=== PATIENT | male | born 1935 | race Caucasian/White ===

== ENCOUNTER → 2016-11-29 | Outpatient (CLI) | payer MEDICARE, BC ==
[~2016-11-29] MED LIST: ACCUPRIL PO; ASPIRIN PO; ATENOLOL PO; CALCIUM 500 + D1 TAB PO; DIOVAN PO; KCL PO; LASIX PO; LIPITOR PO; MULTI-VITAMIN1 TAB PO; PLAVIX PO; SKELAXIN PO; VIT E PO; VITAMIN C
--- NOTE | ~2016-11-29 | CT57 ---
[facility] A Service of [facility] RADIOLOGY TEXT RESULTS PATIENT: MONICA GODINEZ LOCATION: [facility] : 31 UNIT #: [id number] AGE: [address]: Orlando Hardin MD SEX: M ORDER DR: [id number] [id number] [facility]. [place], [place] [address] [id number] O MR#: [id number] Acc #: [id number] NAME: MONICA GODINEZ : 1935 SEX: M STUDY DATE/TIME: 11/29/2016 15:34 UNIT: [facility] ROOM: STUDY DESCRIPTION: CT Chest Wo Cont Attending Physician: Orlando Hardin M.D. Referring Physician: Orlando Hardin M.D. Ordering Physician: Orlando Hardin M.D. Primary Care Physician: Yuval Mari Jr., M.D. MEDICAL IMAGING REPORT This report is preliminary unless electronic signature is present EXAM CT of the chest without contrast INDICATIONS Minus bronchiectasis. Coughing for [address] scan of the chest was performed without contrast. Coronal and sagittal reformatted images were obtained. This CT exam was performed with one or more of the following radiation dose reduction techniques: automatic exposure control, adjustment of mA and/or kV according to patient size, and iterative reconstruction. COMPARISON STUDIES 12/04/2007. FINDINGS Patient has had a prior left lower lobectomy. There is curvilinear scarring within the base of the left lung. There is some more confluent parenchymal density medially which may represent atelectasis or consolidation. There is a 1.2 cm nodular density in the right lower lobe on image 55 and some minimal nodularity at the base of the right lower lobe. 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 No pleural effusion or suspicious lymphadenopathy. Pacemaker. Limited imaging of the upper abdomen demonstrates a cyst in the right kidney, partially imaged. Also noted in the lungs are some calcified pleural plaques on the right. These can be seen with asbestos exposure. Bone windows demonstrate degenerative changes of the thoracic spine. [facility] A Service of [facility] RADIOLOGY TEXT RESULTS PATIENT: MONICA GODINEZ LOCATION: [facility] : 31 UNIT #: [id number] AGE: [address]: Orlando Hardin MD SEX: M ORDER DR: IMPRESSION 1. Prior left lower lobectomy. 2. Scarring within the left lung base with some more confluent density which may represent scarring/atelectasis or parenchymal consolidation. 3. 1.2 cm nodule in the right lower lobe with some minimal nodularity more distally in the right lower lobe. These findings are nonspecific and may be infectious or inflammatory. I would suggest a short-interval follow-up chest CT in [id number] months to document stability or clearing. Dictated by... Yogesh Roman M.D. THIS IS AN ELECTRONICALLY VERIFIED REPORT Yogesh Roman M.D. at 12/01/2016 7:34 AM DANE/rodriguez TD: 11/30/2016 14:59 JOB #: [id number] MEDICAL IMAGING REPORT Page 1 of 1 COPY
== END | disposition home or self-care (01) ==
LOC: CCAT 15:00
DX: J47.9 Bronchiectasis, uncomplicated (principal); R91.1 Solitary pulmonary nodule; Z90.2 Acquired absence of lung [part of]
CPT/HCPCS: 71250